=== PATIENT | male | born 1940 | race Caucasian/White ===

== ENCOUNTER 2019-07-01 08:26 | Inpatient (IN) | payer OTHER ==
[2019-06-19 08:44] LABS: HEMOGLOBIN 13.3 gm/dL (14.0-18.0); MCH 32.2 pg (26.0-34.0); MCV 92.2 fL (80.0-100.0); MPV 6.5 fl. (7.2-11.1); RBC 4.12 mil/uL (4.50-6.00); RDW-CV 14.1 % (10.5-14.5); WBC 7.5 thou/uL (4.0-11.0)
[2019-06-19 08:54] LABS: PROTIME 10.3 Seconds (9.20-11.50)
[2019-06-19 08:58] LABS: ALBUMIN 3.3 g/dL (3.4-5.0); CALCIUM 9.2 mg/dL (8.5-10.1); CREATININE 1.2 mg/dL (0.6-1.3); POTASSIUM 4.4 mmol/L (3.5-5.1); TOTAL BILIRUBIN 0.5 mg/dL (<0.1-1.0); TOTAL PROTEIN 7.3 g/dL (6.4-8.2)
[2019-06-19 09:03] LABS: URINE BILIRUBIN NEGATIVE (Negative); URINE BLOOD NEGATIVE (Negative); URINE CLARITY CLEAR; URINE COLOR YELLOW; URINE GLUCOSE-RANDOM 2+ (Negative); URINE KETONES NEGATIVE (Negative); URINE LEUKOCYTES-REFLEX NEGATIVE (Negative); URINE NITRITE-REFLEX NEGATIVE (Negative); URINE PROTEIN NEGATIVE (Negative); URINE UROBILINOGEN 0.2 E.U./dl (0.2-1.0)
--- NOTE | 2019-06-19 12:09 | EKG ---
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
[~2019-07-01] VITALS: Ht 185.4 cm; Wt 101.2 kg
--- NOTE | ~2019-07-01 | H ---
[address] [address] HISTORY AND PHYSICAL Name: TIGIST AVILA Room: [address] IN ..#: [id number] Admission: 07/01/19 Attend Phys: Areli Giles Discharge: 07/02/19 Date of : 40 Report #: [id number] THIS REPORT FOR: //name// Please refer to the History and Physical performed in the physician's office. By: 0643Medical Records Staff KAREN /ANNETTA
[~2019-07-01 08:26] MED LIST: ASPIR 8181 MG PO; COREG6.25 MG PO; COZAAR 25 MG TA25 M1 PO; DIPHENHIST50 MG PO; GLUMETZA1000 PO; HYDROCHLOROTH12.5 M1 PO; LIPITOR40 MG PO; MELATONIN5 M1 PO; MULTIVITAMINS1 EAC7 PO; NORVASC5 MG PO; PROTONIX40 M1 PO; SINGULAIR 10 MG10 M1 PO; VITAMIN D1000 UNI1 PO; ZANTAC 150MG T150 MG PO
[2019-07-01 09:34] VITALS: BP 147/72
[2019-07-01 14:16] VITALS: BP 140/77
[2019-07-01 15:36] VITALS: BP 125/74
[2019-07-01 20:00] VITALS: BP 142/90
[2019-07-02] VITALS: BP 103/55
[2019-07-02 04:03] VITALS: BP 135/72
[2019-07-02 04:55] LABS: HEMATOCRIT 34.4 % (42.0-52.0); HEMOGLOBIN 11.5 gm/dL (14.0-18.0)
[2019-07-02 08:00] VITALS: BP 115/67
[2019-07-02 11:00] VITALS: BP 135/72
[2019-07-02] MEDS ORDERED: XARELTO10 MG PO (11:26)
[2019-07-02] MEDS ORDERED: PERCOCET PO (11:27)
--- NOTE | 2019-07-02 11:58 | OP ---
[facility] [address] [place] [address] OPERATIVE REPORT Name: RIMASANIYALEDYTIGIST FONTAINE Room: [address] IN M.R.#: [id number] Admission: 07/01/19 Attend Phys: Areli Giles Discharge: Date of : 40 Report #: [id number] THIS REPORT FOR: //name// CC: Isis Verdugo DATE OF SERVICE: 07/01/2019 PREOPERATIVE DIAGNOSIS: Left hip osteoarthritis. POSTOPERATIVE DIAGNOSIS: Left hip osteoarthritis. PROCEDURE: Left total hip arthroplasty. SURGEON: Kishor Sanchez II, DO GAS ROLLER OPERATOR: PARRIS Escobar ANESTHESIA: General endotracheal. ESTIMATED BLOOD LOSS: 300 mL. ANTIBIOTICS: Ancef preoperatively. DRAINS: Medium Hemovac. COMPLICATIONS: None. CONDITION: The patient is stale to recovery room. IMPLANTS: Listed in the operative record and progress note. BRIEF HISTORY: The patient is seen in the preoperative area. Preoperative H and P was performed. Site was marked, questions were answered. Risks and benefits were discussed with the patient in detail about surgery. The patient wished to proceed, assuming all risks. DESCRIPTION OF PROCEDURE: The patient was taken to operating suite, placed supine on the operating table, given appropriate anesthesia. The patient's affected hip was placed in the Norman table leg fan and sterilely prepped and draped in the supine position. Surgery began by longitudinal incision over the anterior portion of the hip. This was carried down to the subcutaneous tissues. A small dorothy was made in the tensor fascia. It was then split along its fibers and retracted laterally. An H capsulotomy was then performed and careful hemostasis was maintained with electrocautery and Aquamantys. The head and neck [place] [id number] OPERATIVE REPORT Name: TIGIST AVILA Room: [address] IN .R.#: [id number] Admission: 07/01/19 Attend Phys: Areli Giles Discharge: Date of : 40 Report #: [id number] cutting alignment guide was then checked with fluoroscopic guidance. Appropriate cut was made in the head and neck and this was removed. Attention was then turned to the acetabulum. Excess labrum was removed. It was then reamed in sequential fashion up to appropriate size. This showed excellent bleeding bone and excellent position on fluoroscopic guidance. The acetabular cup was then malleted in position and secured with cancellous screws, utilizing fluoroscopic guidance. The metal liner was then applied. The patient's leg was then rotated and extended in the Norman table leg fan to expose the femur. It was then broached in sequential fashion up to appropriate size. Appropriate neck was then trialed with appropriate head length and showed excellent fit and fill and excellent stability of the hip throughout all range of motion. These trials were removed. The final stem was then malleted into position and the final head and neck was then malleted into position. It was then reduced in appropriate fashion, checked with C-arm for appropriate leg length and showed excellent leg length throughout the exam without evidence of dislocation upon range of motion and shuck testing. Wound was then copiously irrigated. Hemostasis was maintained with electrocautery and Aquamantys. The pain cocktail was injected. PRP gel was sprayed throughout the internal aspects of the hip and drain was activated. The H capsulotomy was then closed with #1 Vicryl in [id number]-zy-[id number] fashion. The tensor fascia was closed with #1 Vicryl in running fashion. Skin was closed with 2-0 Vicryl and running 3-0 Monocryl with Dermabond and sterile dressing applied. The patient transported to recovery room in stable condition. Counts were correct throughout the procedure. <ELECTRONICALLY SIGNED> By: Kishor Sanchez II, DO 07/02/19 1158 0710 [id number] Sanchez II, DO /nt
== END 2019-07-02 14:00 | disposition home or self-care (01) | DRG 470 ==
LOC: M.TBA 08:26 → M.ORTHSURG 08:26 → M.PRE 10:50 → M.ORTHSURG 14:02
PROVIDERS: Orthopaedic Surgery; ADMIT Internal Medicine
PROC: 0SRB0JZ Replacement of Left Hip Joint with Synthetic Substitute, Open Approach (ICD-10-PCS; principal; 2019-07-01)
DX: M16.12 Unilateral primary osteoarthritis, left hip (principal); J96.10 Chronic respiratory failure, unspecified whether with hypoxia or hypercapnia; I10 Essential (primary) hypertension; E11.9 Type 2 diabetes mellitus without complications; J84.10 Pulmonary fibrosis, unspecified; I25.10 Atherosclerotic heart disease of native coronary artery without angina pectoris; Z79.82 Long term (current) use of aspirin; Z79.899 Other long term (current) drug therapy; Z95.2 Presence of prosthetic heart valve; Z95.5 Presence of coronary angioplasty implant and graft; Z87.891 Personal history of nicotine dependence; G47.33 Obstructive sleep apnea (adult) (pediatric); K21.9 Gastro-esophageal reflux disease without esophagitis; J44.9 Chronic obstructive pulmonary disease, unspecified; E78.5 Hyperlipidemia, unspecified

== ENCOUNTER → 2019-08-08 | Outpatient (CLI) | payer OTHER ==
[~2019-08-08] MED LIST changes: +PERCOCET PO; +XARELTO10 MG PO
== END ==
LOC: M.RAD 10:22
DX: M16.0 Bilateral primary osteoarthritis of hip (principal); I87.8 Other specified disorders of veins; Z96.642 Presence of left artificial hip joint

== ENCOUNTER → 2019-11-07 | Outpatient (CLI) | payer OTHER ==
--- NOTE | 2019-11-11 08:07 | PATH ---
[address] [address] PATHOLOGY RPT PROCEDURE Name: TIGIST AVILA Room: [facility] BakariBuck#: [id number] Admission: 11/07/19 Date of : 40 Discharge: Report #: [id number] Path Case #: [id number] Note [facility] Accession Number: [id number] TESTS RESULT FLAG UNITS REF RANGE LAB Clinician Provided Cytology Information No. of containers..01 Other (Miscellaneous) Source: THYROID DIAGNOSIS: THYROID, IMAGE-GUIDED FNA [place] CATEGORY I. INADEQUATE/UNSATISFACTORY FEWER THAN 6 GROUPS OF 10 THYROID FOLLICULAR CELLS. FEW FRAGMENTS OF FAT. THIS INTERPRETATION INCLUDES EVALUATION OF A CELL BLOCK. Pathologist ICD10: 02 R89.6 Signed out by: 02 Jose Luis Echeverria MD, Pathologist NPI- [id number] Performed by: Izabela Zuluaga, Sorter Operator ([facility]) Gross description: 01 20ML, RED, CLOUDY /LCS 11/07/2019 1543 Local FLAG LEGEND: L-Low Normal,H-High Normal,LL-Alert Low,HH-Alert High <-Panic Low,>-Panic High,A-Abnormal,AA-Critical Abnormal Performed at: [address] [place] [address] Kendrick Kwan MD, [address] [place] [address] [place] [address] Jose Luis Echeverria MD, Specimen Comment: A courtesy copy of this report has been sent to [phone], [phone] Specimen Comment: [phone], Specimen Comment: Report sent to / DR DAS Performed at: [address], [place], [place] [id number] MD Kendrick Kwan MD Phone: [phone]
== END ==
LOC: M.ULTRA 09:39
DX: E04.1 Nontoxic single thyroid nodule (principal); R89.6 Abnormal cytological findings in specimens from other organs, systems and tissues

== ENCOUNTER 2019-12-18 16:42 | Emergency (ER) | payer OTHER ==
[~2019-12-18] VITALS: Ht 185.4 cm; Wt 99.8 kg
--- NOTE | ~2019-12-18 | EKG ---
[place] [address] ELECTROCARDIOGRAM REPORT Name: AUSTINMITRATIGIST Earl Room: [facility]#: [id number] Admission: 12/18/19 Attend Phys: Discharge: 12/18/19 Date of : 40 Date of Service: 12/18/19 1754 Report #: [id number] THIS REPORT FOR: cc: Isis Watkins Linda J. DO Epiphany, Epiphany MD ~ THIS REPORT FOR: //name// [facility] ED Test Date: 2019-12-18 Test Time: 17:54:38 Pat Name: TIGIST AVILA Department: Room: Gender: M Slag Motor Operator: KEVIN : 1940 Requested By: Jeannette Ren Order Number: [id number] MD: Measurements Intervals [place] Rate: 82 P: 62 MS: 243 QRS: -18 QRSD: 188 T: 116 QT: 437 QTc: 511 Interpretive Statements Sinus rhythm Prolonged MS interval Left bundle branch block No previous ECG available for comparison [email or web address] By: 53 53 Epiphany Epiph[place], [place] /HUBER
[2019-12-18 17:40] LABS: URINE BILIRUBIN NEGATIVE (Negative); URINE BLOOD 1+ (Negative); URINE CLARITY CLEAR; URINE COLOR YELLOW; URINE GLUCOSE-RANDOM NEGATIVE (Negative); URINE KETONES 1+ (Negative); URINE LEUKOCYTES-REFLEX NEGATIVE (Negative); URINE NITRITE-REFLEX NEGATIVE (Negative); URINE PROTEIN 3+ (Negative); URINE SPECIFIC GRAVITY 1.025 (1.005-1.030); URINE UROBILINOGEN 0.2 E.U./dl (0.2-1.0)
[2019-12-18 17:49] LABS: BACTERIA-REFLEX None Seen /HPF (None Seen); CASTS None Seen /LPF (None Seen); CRYSTALS None Seen /LPF (None Seen); SQUAMOUS 0-3 Few /LPF (0-3); URINE RBC 0-2 Rare /HPF (0-2); URINE WBC-REFLEX None Seen /HPF (0-5)
[2019-12-18 17:52] LABS: HEMATOCRIT 41.1 % (42.0-52.0); HEMOGLOBIN 13.9 gm/dL (14.0-18.0); MCH 30.1 pg (26.0-34.0); MCHC 33.7 g/dL (28.0-37.0); MCV 89.2 fL (80.0-100.0); MPV 6.7 fl. (7.2-11.1); NUCLEATED RBCS 0 /100WBC; PLATELET COUNT* 198 thou/uL (150-400); RBC 4.61 mil/uL (4.50-6.00); RDW-CV 14.3 % (10.5-14.5); WBC 16.4 thou/uL (4.0-11.0)
[2019-12-18 18:01] LABS: CREATININE 1.2 mg/dL (0.6-1.3)
[2019-12-18 18:12] LABS: ALBUMIN 3.8 g/dL (3.4-5.0); TOTAL BILIRUBIN 0.6 mg/dL (<0.1-1.0); TOTAL PROTEIN 8.6 g/dL (6.4-8.2)
[2019-12-18 18:23] LABS: APTT 26.8 Seconds (25.0-31.3); PROTIME 10.7 Seconds (9.20-11.50)
[2019-12-18 19:06] LABS: ABSOLUTE LYMPHOCYTES 1.3 thou/uL (0.8-5.3); ABSOLUTE MONOCYTES 1.5 thou/uL (0.0-1.2); ABSOLUTE NEUTROPHILS 13.6 thou/uL (1.6-8.1)
[2019-12-18 19:07] LABS: OVALOCYTES Occasional; PLATELET ESTIMATE ADEQUATE
[2019-12-18] MEDS ORDERED: ONDANSETRON HCL4 M2 PO ×2 (20:18→20:26)
[2019-12-18] MEDS ORDERED: NORCO 5-325 TA1 EAC1 PO (20:26)
[2019-12-18 21:25] VITALS: BP 161/93
== END 2019-12-18 21:26 | disposition home or self-care (01) ==
LOC: M.ERS 16:42
PROVIDERS: Nurse Practitioner Family
DX: K80.20 Calculus of gallbladder without cholecystitis without obstruction (principal); I44.7 Left bundle-branch block, unspecified; I10 Essential (primary) hypertension; E11.9 Type 2 diabetes mellitus without complications; Z95.2 Presence of prosthetic heart valve

== ENCOUNTER → 2020-06-21 | Outpatient (CLI) | payer OTHER ==
[~2020-06-21] MED LIST changes: +NORCO 5-325 TA1 EAC1 PO; +ONDANSETRON HCL4 M2 PO
== END ==
LOC: M.RAD 15:04
PROVIDERS: ATTEND Orthopaedic Surgery
DX: M16.0 Bilateral primary osteoarthritis of hip (principal); I87.8 Other specified disorders of veins; M47.816 Spondylosis without myelopathy or radiculopathy, lumbar region; Z96.642 Presence of left artificial hip joint